=== PATIENT | male | born 1945 | race Caucasian/White ===

== ENCOUNTER → 2020-04-23 12:43 | Outpatient (BNVA) | payer MEDICARE, MEDICAID, SELFPAY | PROVIDERS: PCP Hospitalist; Visit Provider Urology | DX: N48.89 Other specified disorders of penis (principal) | CPT/HCPCS: 99202 ==

== ENCOUNTER 2020-05-04 06:00 | Day surgery (SDC) | payer MEDICARE, MEDICAID, SELFPAY ==
--- NOTE | 2020-05-03 11:51 | P.CONAN_ITS ---
Documented by User: Teresa Ascencio 05/03/20 11:59 HPI - Anesthesia Eval Consult details Narrative: 74yo M for Excision Penile Mass Eliquis for h/o PE 10/2019 C admit with pna/sepsis. [facility] Past Medical History Medical History COPD (chronic obstructive pulmonary disease) Dementia in other diseases classified elsewhere with behavioral disturbance Diabetes Dysphagia Flaccid neuropathic bladder, not elsewhere classified GERD (gastroesophageal reflux disease) History of pulmonary embolism Neuromuscular dysfunction of bladder Obstruction of bile duct Penile mass PVD (peripheral vascular disease) Retention of urine Social History Social History Smoking Status: Never smoker Have you been hit, kicked, punched, or otherwise hurt by someone within the past year? If so, by whom?: No Advance Directives: No Advance Directives Information Provided: No Meds Allergies Allergy/AdvReac Type Severity Reaction Status Date / Time Penicillins [PENICILLINS] Allergy Unknown RASH Verified 05/04/20 06:44 Home Medications Medication Instructions Recorded Confirmed Type acetaminophen 325 mg capsule 325 mg PO QID PRN 04/23/20 04/23/20 History apixaban 5 mg tablet 5 mg PO BID 04/23/20 04/23/20 History insulin lispro 100 unit/mL 5 unit SUBCUT TID 04/23/20 04/23/20 History subcutaneous pen metformin 500 mg tablet 500 mg PO DAILY 04/23/20 04/23/20 History mirtazapine 15 mg tablet 15 mg PO DAILY 04/23/20 04/23/20 History Vitamin C 05/04/20 History metoprolol succinate 50 mg PO 05/04/20 History olanzapine 5 mg PO 05/04/20 History Exam Exam Date and Time: May 03, 2020 1151 Pertinent Lab Results Pertinent Lab Results: Laboratory Tests 10/21/19 10/21/19 05:50 05:50 WBC 11.0 H Hgb 10.8 L Hct 34.5 L Plt Count 302 Sodium 141 Potassium 4.3 Chloride 109 H BUN 17 H Creatinine 1.11 Assessment and Plan Assessment Anesthesia Assessment: Chart Reviewed Documented by User: Liana Simon 05/04/20 07:24 [facility] Past Medical History Medical History COPD (chronic obstructive pulmonary disease) Dementia in other diseases classified elsewhere with behavioral disturbance Diabetes Dysphagia Flaccid neuropathic bladder, not elsewhere classified GERD (gastroesophageal reflux disease) History of pulmonary embolism Neuromuscular dysfunction of bladder Obstruction of bile duct Penile mass PVD (peripheral vascular disease) Retention of urine Social History Social History Smoking Status: Never smoker Have you been hit, kicked, punched, or otherwise hurt by someone within the past year? If so, by whom?: No Advance Directives: No Advance Directives Information Provided: No Meds Allergies Allergy/AdvReac Type Severity Reaction Status Date / Time Penicillins [PENICILLINS] Allergy Unknown RASH Verified 05/04/20 06:44 Home Medications Medication Instructions Recorded Confirmed Type acetaminophen 325 mg capsule 325 mg PO QID PRN 04/23/20 04/23/20 History apixaban 5 mg tablet 5 mg PO BID 04/23/20 04/23/20 History insulin lispro 100 unit/mL 5 unit SUBCUT TID 04/23/20 04/23/20 History subcutaneous pen metformin 500 mg tablet 500 mg PO DAILY 04/23/20 04/23/20 History mirtazapine 15 mg tablet 15 mg PO DAILY 04/23/20 04/23/20 History Vitamin C 05/04/20 History metoprolol succinate 50 mg PO 05/04/20 History olanzapine 5 mg PO 05/04/20 History Exam Airway Mallampati Class: II TM Dist: >3cm Neck ROM: Limited Assessment and Plan Assessment Anesthesia Assessment: Anesthesia Plan Discussed and Chart Reviewed Final Anesthetic Review NPO: Yes ASA Class: III Final Preanesthetic Review: No Changes in Pt Med Stat, Meds/Allgs Chart Reviewed, Consent Obtained/Reviewed and Anes Risks/Benef Reviewed Patient Risk: Intermediate Procedure Risk: Low Assessment/Block/Sedation in SS: Assess/Block/Sedation-SS Anesthetic Plan Anesthetic Plan: MAC: Disposition: Standard PACU
[2020-05-03 16:02] VITALS: BMI 22.1
[2020-05-04 06:49] VITALS: BP 172/66; PULSE 60; RESP 16; TEMP 36.4; O2SAT 100
[2020-05-04 06:52] LABS: Glucose, Whole Blood 166 mg/dL (60-115)
[2020-05-04] MEDS: Lactated Ringers 1,000 ML 50 ML IVCONT (07:00)
[2020-05-04] MEDS: levoFLOXacin/D5W 500 MG/100 ML PIGGYBACK 100 MG IV (07:00)
--- NOTE | 2020-05-04 07:09 | MHC.SHP ---
Pre-Procedural Eval Section A The patient is an INPATIENT: No The History & Physical has been completed within 30 days and I have reviewed it.: Yes Section B Chief Complaint: disorder of penis Allergies: Allergies Allergy/AdvReac Type Severity Reaction Status Date / Time Penicillins [PENICILLINS] Allergy Unknown RASH Verified 05/04/20 06:44 Plan Diagnosis/Plan: Unchanged I have reviewed the history and physical and performed a pertinent physical examination on my patient. No changes have occurred unless specified.
--- NOTE | 2020-05-04 08:03 | PM.OP ---
Brief Operative Note Date of Service: 05/04/20 Pre-op diagnosis: penile mass Post-op diagnosis: other (penile sctotal mass) Procedure: excision of mass and cysto Surgeon: Krzysztof Cornell III, MD Anesthesia: MAC and local Estimated blood loss (mL): 0 Pathology: other (mass sent) Condition: stable Disposition: same day
[2020-05-04 08:12] VITALS: BP 112/48; PULSE 58; RESP 16; TEMP 36.6; O2SAT 100
[2020-05-04 08:27] VITALS: BP 140/53; PULSE 55; RESP 18; O2SAT 100
--- NOTE | 2020-05-04 09:04 | HO.POSTANES ---
Post Anesthesia Evaluation Post Anesthesia Evaluation Vital Signs: Vital Signs Temp Pulse Resp BP Pulse Ox 05/04/20 08:27 97.8 F 55 18 140/53 H 100 05/04/20 08:12 97.8 F 58 16 112/48 L 100 05/04/20 06:49 97.6 F 60 16 172/66 H 100 Anesthesia: Monitored Mental Status: Awake Pain Control: Satisfactory Nausea/Vomiting: None Hydration: Adequate Anesthesia-Related Issues: No Anes. Related Issues
--- NOTE | 2020-08-04 12:47 | OP_ITS ---
SURGEON: Krzysztof Cornell III, MD PREOPERATIVE DIAGNOSIS: Penile mass. POSTOPERATIVE DIAGNOSIS: PROCEDURE PERFORMED: ESTIMATED BLOOD LOSS: None. COMPLICATIONS: None. ANESTHESIA: ASSISTANTS: SPECIMENS: Sent to pathology for both frozen and permanent. POSTOPERATIVE DIAGNOSES: Penile scrotal mass, obliterated urethra. PROCEDURE: Cystoscopy and excision of mass . ANESTHETIC: MAC local. COMPLICATIONS: None. PROCEDURE IN DETAIL: The patient after adequate anesthesia was obtained, a time-out done demonstrating correct patient, correct procedure. Following this, the patient underwent attempt to place a Roach catheter, which was unsuccessful. Cystoscopy demonstrated the patient had obliterated urethra to the mass. The erythematous bleeding portion that was exophytic on the skin, was circumscribed with a knife and subsequently using sharp dissection was removed. The patient still has mass underneath and going deeper into his pelvis and posterior urethra. A silk tag was left in this area. This would represent the top of the remaining tumor/mass. The patient had his incision closed with absorbable suture. He tolerated procedure well with no complications. MD BOYD Naik III/[facility] / [id number]
== END 2020-05-04 09:05 | disposition other institution (70) ==
PROVIDERS: PCP Hospitalist; Visit Provider Urology
PROC: (CPT 11423; principal; 2020-05-04 07:30)
DX: N48.89 Other specified disorders of penis (principal); N36.8 Other specified disorders of urethra; N31.2 Flaccid neuropathic bladder, not elsewhere classified; R33.9 Retention of urine, unspecified; J44.9 Chronic obstructive pulmonary disease, unspecified; F03.91 Unspecified dementia, unspecified severity, with behavioral disturbance; I70.402 Unspecified atherosclerosis of autologous vein bypass graft(s) of the extremities, left leg; E08.51 Diabetes mellitus due to underlying condition with diabetic peripheral angiopathy without gangrene; Z79.4 Long term (current) use of insulin; Z79.899 Other long term (current) drug therapy; Z88.0 Allergy status to penicillin; Z66 Do not resuscitate; Z89.512 Acquired absence of left leg below knee; Z91.81 History of falling
CPT/HCPCS: 11423; 82947; 88304; 88331; J1956; J2405; J3010

== ENCOUNTER → 2020-05-11 12:59 | Outpatient (BNVA) | payer MEDICARE, MEDICAID, SELFPAY | PROVIDERS: PCP Hospitalist; Visit Provider Urology | DX: N48.89 Other specified disorders of penis (principal) | CPT/HCPCS: 99212 ==

== ENCOUNTER 2020-05-20 08:44 | Outpatient (REF) | payer MEDICARE, MEDICAID, SELFPAY ==
--- NOTE | ~2020-05-20 | CT_ITS ---
EXAMINATION: CT PELVIS WITH CONTRAST CLINICAL INFORMATION: Disorders of penis. COMPARISON: None TECHNIQUE: Helical scanning was performed with submillimeter collimation through the pelvis with the use of oral contrast and during bolus intravenous injection of 100 mL of Omnipaque 350 intravenous contrast. Sagittal and coronal multiplanar 2-D reconstructions were obtained. This CT examination was performed using dose optimization techniques as appropriate, variously including the following: *Automated exposure control *Adjustment of mA and/or kV according to patient size (this includes techniques or standardized protocols for targeted exams where dose is matched to indication/reason for exam; i.e. extremities or head) *Use of iterative reconstruction technique DLP: 345 mGy-cm FINDINGS: PELVIS: There is a suprapubic catheter with a diffusely thickened bladder wall. The prostate gland is moderately enlarged and appears heterogenous. A large amount of stool is seen in the rectum. No pelvic mass or abnormal lymph nodes seen. There is hyperdensity seen in the right corpus cavernosa. No soft tissue mass seen surrounding the penis or the perineum. OSSEOUS STRUCTURES: No lytic or sclerotic process seen. There is moderate periarticular spurring right hip joint. CT/CT pelvis w con IMPRESSION: Hyperdensity in the right corpus cavernosa of unknown etiology. This can be seen with diabetes or trauma. Correlate clinically. Moderate constipation. Diffuse bladder wall thickening with a Roach's catheter within.
[2020-05-20] MEDS: iohexoL 350 MG/ML 100 ML INFUS..BTL 85 ML IV (10:10)
== END 2020-05-20 08:45 | disposition home or self-care (01) ==
LOC: HO.CT 08:44
PROVIDERS: PCP Hospitalist; Visit Provider Urology
DX: N48.89 Other specified disorders of penis (principal)
CPT/HCPCS: 72193; Q9967

== ENCOUNTER → 2020-07-01 10:11 | Outpatient (BNVA) | payer MEDICARE, MEDICAID, SELFPAY | PROVIDERS: Visit Provider Urology | DX: N48.89 Other specified disorders of penis (principal); R33.9 Retention of urine, unspecified | CPT/HCPCS: 99212 ==

== ENCOUNTER → 2021-01-04 10:12 | Outpatient (BNVA) | payer MEDICARE, MEDICAID, SELFPAY | PROVIDERS: Visit Provider Urology | DX: N48.89 Other specified disorders of penis (principal); N49.2 Inflammatory disorders of scrotum; N31.9 Neuromuscular dysfunction of bladder, unspecified | CPT/HCPCS: 99212 ==

== ENCOUNTER → 2021-07-06 10:31 | Outpatient (BNVA) | payer MEDICARE, MEDICAID, SELFPAY | PROVIDERS: PCP Hospitalist; Visit Provider Urology | DX: N31.9 Neuromuscular dysfunction of bladder, unspecified (principal); N48.89 Other specified disorders of penis | CPT/HCPCS: 99212 ==

== ENCOUNTER → 2022-05-02 09:41 | Outpatient (BNVA) | payer MEDICARE, MEDICAID, SELFPAY | PROVIDERS: PCP Hospitalist; Visit Provider Nurse Practitioner Family | DX: N31.9 Neuromuscular dysfunction of bladder, unspecified (principal) | CPT/HCPCS: 99212 ==

== ENCOUNTER 2022-07-19 09:53 | Outpatient (REF) | payer MEDICARE, MEDICAID, SELFPAY ==
--- NOTE | ~2022-07-19 | CT_ITS ---
EXAMINATION: CT CHEST, ABDOMEN AND PELVIS WITHOUT CONTRAST CLINICAL INFORMATION: Abnormal weight loss. COMPARISON: CT pelvis 05/20/2020 TECHNIQUE: Multidetector volumetric CT imaging of the chest, abdomen, and pelvis was performed without contrast. Axial MIP volume rendering provided. Sagittal and coronal reformatted images were obtained. DLP: 139 mGy-cm. FINDINGS: CHEST: LUNGS: Moderate centrilobular emphysema with upper lobe predominance. There is abnormal parenchymal consolidation at the apex of the right upper lobe with an area of calcification measuring 4.8 x 3.0 x 4.0 cm. Along the posterior aspect of the cavitation there is a 2.3 x 1.6 x 1.7 cm rounded low-attenuation nodule. MEDIASTINUM: No mediastinal adenopathy. No aortic aneurysm. No pericardial effusion. CORONARY ARTERY CALCIUM: Present. LAD, LCx, RCA distribution calcium. PLEURA: There is pleural thickening along the right upper lobe cavitation. AXILLA: No lymphoma. ABDOMEN AND PELVIS: LIVER, GALLBLADDER, AND BILIARY TREE: Calcified granuloma in segment IVb. No biliary ductal dilatation or discrete liver mass. Cholecystectomy. PANCREAS: There is a nonspecific nodule along the anterior aspect of the pancreatic head measuring 1.6 x 1.3 x 1.2 cm. There is no pancreatic ductal dilatation SPLEEN: Normal. ADRENAL GLANDS: No adrenal mass. KIDNEYS AND URETERS: The upper pole left kidney is atrophic. There is no discrete renal mass. No nephrolithiasis or hydronephrosis. BLADDER: Suprapubic catheter. GASTROINTESTINAL TRACT: The small bowel is normal in caliber. The appendix is normal. There is a large amount stool in the rectal vault with mild surrounding inflammation which may represent sterocoral colitis. ABDOMINAL WALL: Stable metallic foreign density in the subcutaneous tissue of the left lower quadrant. No significant hernia. LYMPH NODES: No lymphadenopathy. VASCULAR: Significant aortoiliac atherosclerotic disease. No aortic aneurysm. Bilateral external iliac artery stents. Surgical changes bilateral groins. PELVIC VISCERA: Enlarged prostate. OSSEOUS STRUCTURES: Degenerative changes in the spine. CT/CT abdomen pelvis wo IV con IMPRESSION: 4.8 x 3.0 x 4.0 cm cavity in the posterior right upper lobe, within which is a 2.3 x 1.6 x 1.7 cm rounded low-attenuation nodule. 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 Nonspecific nodule along the anterior aspect of the pancreatic head measuring 1.6 x 1.3 x 1.2 cm. Further evaluation with pancreatic protocol CT abdomen without and with contrast is recommended. Large amount of stool in the rectal vault with mild surrounding inflammation which may represent stercoral colitis. Fleischner guidelines were followed.
[2022-07-19 13:32] LABS: Creatinine POC 0.7 mg/dL (0.5-1.4); GFR POC > 60
== END 2022-07-19 09:54 | disposition home or self-care (01) ==
LOC: HO.CT 09:53
PROVIDERS: PCP Hospitalist; Visit Provider Hospitalist
DX: R10.9 Unspecified abdominal pain (principal); R63.4 Abnormal weight loss; R53.83 Other fatigue
CPT/HCPCS: 71250; 74176; 82565

== ENCOUNTER 2022-08-17 10:17 | Outpatient (REF) | payer MEDICARE, MEDICAID, SELFPAY ==
[2022-08-17 11:15] LABS: MANUAL DIFF FLAG NO
[2022-08-17 12:36] LABS: Basophils Absolute Auto 0.1 X10*3/uL (0.0-0.2); Basophils Percent Auto 0.7 % (0-2); Eosinophils Absolute Auto 0.7 X10*3/uL (0.0-0.4); Eosinophils Percent Auto 4.7 % (0-4); Hematocrit 33.1 % (42.0-52.0); Hemoglobin 9.5 g/dl (14.0-18.0); Imm Gran Abs Auto 0.32 X10*3/uL (0.00-0.03); Imm Gran Pct Auto 2.2 % (0.0-0.4); Lymphocytes Absolute Auto 1.7 X10*3/uL (1.2-4.9); Lymphocytes Percent Auto 11.5 % (20-40); Mean Corpuscular HGB Conc 28.7 g/dl (31.0-36.0); Mean Corpuscular Hemoglobin 23.8 pg (27.0-33.0); Mean Platelet Volume 10.8 fL (9.4-12.4); Monocytes Absolute Auto 1.3 X10*3/uL (0.1-1.2); Neutrophils Absolute Auto 10.4 x10*3/uL (2.0-8.3); Neutrophils Percent Auto 71.9 % (45-73); Platelet Count 382 X10*3/uL (160-400); Red Blood Count 3.99 X10*6/uL (4.60-5.80); Red Cell Distribution Width 17.7 % (11.0-16.0); White Blood Count 14.5 X10*3/uL (4.8-10.8)
[2022-08-19 23:48] LABS: TS Negative Control Passed; TS Panel A 0; TS Panel B 1; TS Positive Control Passed; TSpotTB Negative (Negative)
[2022-08-21 14:23] LABS: Immunoglobulin G Subclass 1 976 mg/dL (382-929); Immunoglobulin G Subclass 2 288 mg/dL (241-700); Immunoglobulin G Subclass 3 70 mg/dL (22-178); Immunoglobulin G Subclass 4 157.3 mg/dL (4-86); Immunoglobulin G Total 1437 mg/dL (600-1540)
[2022-08-23 15:03] LABS: Aspergillus Antigen Not Detected (Not Detected); Index Value 0.21 (<0.50)
== END 2022-08-17 10:18 | disposition home or self-care (01) ==
LOC: HO.LAB 10:17
PROVIDERS: PCP Hospitalist; Visit Provider Hospitalist
DX: J98.4 Other disorders of lung (principal); R63.4 Abnormal weight loss
CPT/HCPCS: 36415; 82784; 85025; 86481; 87305; 99202

== ENCOUNTER 2022-08-31 07:42 | Outpatient (REF) | payer MEDICARE, MEDICAID, SELFPAY ==
--- NOTE | ~2022-08-31 | CT_ITS ---
EXAMINATION: CT ABDOMEN WITHOUT AND WITH CONTRAST CLINICAL INFORMATION: Malignant neoplasm of thyroid pancreas. COMPARISON: CT abdomen and pelvis 07/19/2022. TECHNIQUE: Contiguous axial thin section helical images of the abdomen were performed before and after the administration of oral contrast and 85 mL of Omnipaque 350 intravenous contrast. The data set was reformatted in the coronal and sagittal planes and reviewed on an independent workstation. This CT examination was performed using dose optimization techniques as appropriate, variously including the following: *Automated exposure control *Adjustment of mA and/or kV according to patient size (this includes techniques or standardized protocols for targeted exams where dose is matched to indication/reason for exam; i.e. extremities or head) *Use of iterative reconstruction technique DLP: 369 mGy-cm. FINDINGS: LUNG BASES: There are atelectatic changes left lower lobe lateral basal segment. LIVER, GALLBLADDER, AND BILIARY TREE: The liver is homogeneous in density, normal contour and position. There is a 4 mm calcification in segment 4A. No additional lesions seen. No intrahepatic ductal dilatation. PANCREAS: The pancreas is normal size and density. In the body of the pancreas, there is an exophytic lesion measuring 1.6 x 1.4 cm on axial slice 19/6. On precontrast measures 17 Hounsfield units. On arterial phase it measures 30 Hounsfield units and on venous phase it measures 70 Hounsfield units. On the venous phase, the lesion appears to have a intraparenchymal component on axial slice 56/8 measuring 0.9 x 0.8 cm. It measures 70 Hounsfield units. No additional lesions seen. SPLEEN: The spleen is unremarkable. ADRENAL GLANDS AND KIDNEYS: The adrenal glands are symmetrical and normal. The left kidney is smaller compared to right side. No radiopaque renal calculi or enhancing renal mass seen. There is bilateral perinephric stranding. No hydronephrosis. BOWEL LOOPS: There is scattered stool and gas seen throughout the colon without distention. The small bowel loops are normal caliber. Appendix is not in the [id number]. LYMPH NODES: Unremarkable. VASCULAR: Mild atherosclerosis of abdominal aorta is noted. BONES: No aggressive lytic or sclerotic process seen. Mild region disc changes L4-L5 disc level with mild ventral spondylosis present. CT/CT abdomen wo/w IV con IMPRESSION: 1. Exophytic enhancing arterial and venous lesion in the body of the pancreas with intraparenchymal component. Findings suspicious for primary pancreatic neoplasm 2. No additional lesions seen. No abnormal retroperitoneal or mesenteric lymph nodes. 3. Small left kidney compared to right side. 4. Mild constipation. Fleischner guidelines were followed.
[2022-08-31] MEDS: iohexoL 350 MG/ML 100 ML INFUS..BTL IV (08:42)
== END 2022-08-31 07:43 | disposition home or self-care (01) ==
LOC: HO.CT 07:42
PROVIDERS: PCP Hospitalist; Visit Provider Hospitalist
DX: C25.0 Malignant neoplasm of head of pancreas (principal)
CPT/HCPCS: 74170; Q9967

== ENCOUNTER 2022-09-07 07:26 | Day surgery (SDC) | payer MEDICARE, MEDICAID, SELFPAY ==
--- NOTE | 2022-09-06 14:21 | HO.ANESPROP2 ---
Documented by User: Teresa Ascencio NP 09/06/22 14:25 HPI - Anesthesia Eval Consult details Narrative: 77yo M for Bronchoscopy Fiberoptic SNF resident/DNR/Dementia (sister signs) Medically optimized Eliquis for PVD/Hx PE PMFSH Active Problems Active Problems: All Active Problems (Updated 09/06/22 @ 11:47 by Meg Sorenson, RN) Neurogenic urinary bladder disorder (Acute) Recurrent scrotal infection (Acute) Weight loss (Acute) Cavitary lesion of lung (Acute) Penile mass (Acute) Past Medical History Medical History (Updated 09/06/22 @ 11:47 by Meg Sorenson, RN) Cavitary lesion of lung COPD (chronic obstructive pulmonary disease) Dementia in other diseases classified elsewhere with behavioral disturbance Diabetes Dysphagia Flaccid neuropathic bladder, not elsewhere classified Generalized anxiety disorder GERD (gastroesophageal reflux disease) History of pulmonary embolism HTN (hypertension) Neuromuscular dysfunction of bladder Obstruction of bile duct On anticoagulant therapy Penile mass Presence of suprapubic catheter Pulmonary aspergillosis PVD (peripheral vascular disease) Retention of urine Weight loss Surgical History Surgical History (Updated 09/06/22 @ 11:47 by Meg Sorenson RN) History of amputation of left foot History of below knee amputation History of cystoscopy Status post amputation of toe of right foot Social History Social History (Updated 08/17/22 @ 10:38 by PRADEEP Kiran) Patient Tobacco Use Status: Current everyday Tobacco user Tobacco use type: Cigarette Cigarettes Per Day: 5 Years Smoked: 50 Years Use of substances other than those prescribed or required for medical reasons: No Are you DNR?: No Advance Directives: No Advance Directives Information Provided: Yes Meds Allergies Allergy/AdvReac Type Severity Reaction Status Date / Time Penicillins [PENICILLINS] Allergy Unknown RASH Verified 08/17/22 10:32 Home Medications Medication Instructions Recorded Confirmed Last Taken Type acetaminophen 325 mg capsule 325 mg PO QID PRN Pain 04/23/20 09/01/22 Unknown History apixaban 5 mg tablet (Eliquis) 5 mg PO BID 04/23/20 09/01/22 05/03/20 History mirtazapine 15 mg tablet 15 mg PO DAILY 04/23/20 09/01/22 Unknown History insulin aspart U-100 100 unit/mL subcut 07/06/21 05/02/22 Unknown History (3 mL) subcutaneous pen (Novolog FlexPen U-100 Insulin aspart) metformin 1,000 mg tablet 1,000 mg PO BID 07/06/21 09/01/22 Unknown History metoprolol succinate 50 mg 50 mg PO DAILY 07/06/21 09/01/22 Unknown History tablet,extended release 24 hr olanzapine 5 mg tablet 5 mg PO BEDTIME 07/06/21 09/01/22 Unknown History pen needle,diabetic dual safty 30 #100 ea 07/06/21 Unknown History gauge x 3/16 (BD AutoShield Duo Pen Needle) tramadol 50 mg tablet 50 mg PO TID PRN Pain 07/06/21 09/01/22 Unknown History gemfibrozil 600 mg tablet 600 mg PO BID 05/02/22 09/01/22 Unknown History bisacodyl 10 mg rectal suppository [address] DAILY PRN Constipation 08/17/22 09/01/22 Unknown History esomeprazole magnesium 40 mg 40 mg PO DAILY 08/17/22 09/01/22 Unknown History capsule,delayed release naloxone 4 mg/actuation nasal 4 mg intranasal Q3M PRN Drug 08/17/22 09/01/22 Unknown History spray (Narcan) Intoxication Symptoms nicotine 7 mg/24 hr daily 1 patch transdermal Q24H 08/17/22 09/01/22 Unknown History transdermal patch sennosides 8.6 mg tablet (senna) 8.6 mg PO DAILY 08/17/22 09/01/22 Unknown History sodium phosphates 19 gram-[address] DAILY 08/17/22 09/01/22 Unknown History gram/118 mL enema (Fleet Enema) ascorbic acid (vitamin C) 500 mg 500 mg PO BID 09/06/22 09/06/22 Unknown History tablet (Vitamin C) Exam Exam Date and Time: September 06, 2022 1421 Pertinent Lab Results Pertinent Lab Results: Laboratory Tests 08/17/22 11:14 WBC 14.5 H Hgb 9.5 L Hct 33.1 L Plt Count 382 Assessment and Plan Assessment Anesthesia Assessment: Chart Reviewed Documented by User: Aryan Reis MD 09/07/22 09:27 [facility] Past Medical History Medical History (Updated 09/06/22 @ 11:47 by Meg Sorenson, RN) Cavitary lesion of lung COPD (chronic obstructive pulmonary disease) Dementia in other diseases classified elsewhere with behavioral disturbance Diabetes Dysphagia Flaccid neuropathic bladder, not elsewhere classified Generalized anxiety disorder GERD (gastroesophageal reflux disease) History of pulmonary embolism HTN (hypertension) Neuromuscular dysfunction of bladder Obstruction of bile duct On anticoagulant therapy Penile mass Presence of suprapubic catheter Pulmonary aspergillosis PVD (peripheral vascular disease) Retention of urine Weight loss Functional capacity: wheelchair bound Narrative: s/p left BKA Family History Family history of problems with anesthesia: No Surgical History Surgical History (Updated 09/06/22 @ 11:47 by Meg Sorenson, RN) History of amputation of left foot History of below knee amputation History of cystoscopy Status post amputation of toe of right foot History of Problems with Anesthesia: No Social History Social History (Updated 08/17/22 @ 10:38 by PRADEEP Kiran) Patient Tobacco Use Status: Current everyday Tobacco user Tobacco use type: Cigarette Cigarettes Per Day: 5 Years Smoked: 50 Years Use of substances other than those prescribed or required for medical reasons: No Are you DNR?: No Advance Directives: No Advance Directives Information Provided: Yes Meds Allergies Allergy/AdvReac Type Severity Reaction Status Date / Time Penicillins [PENICILLINS] Allergy Unknown RASH Verified 08/17/22 10:32 Home Medications Medication Instructions Recorded Confirmed Last Taken Type acetaminophen 325 mg capsule 325 mg PO QID PRN Pain 04/23/20 09/01/22 Unknown History apixaban 5 mg tablet (Eliquis) 5 mg PO BID 04/23/20 09/01/22 05/03/20 History mirtazapine 15 mg tablet 15 mg PO DAILY 04/23/20 09/01/22 Unknown History insulin aspart U-100 100 unit/mL subcut 07/06/21 05/02/22 Unknown History (3 mL) subcutaneous pen (Novolog FlexPen U-100 Insulin aspart) metformin 1,000 mg tablet 1,000 mg PO BID 07/06/21 09/01/22 Unknown History metoprolol succinate 50 mg 50 mg PO DAILY 07/06/21 09/01/22 Unknown History tablet,extended release 24 hr olanzapine 5 mg tablet 5 mg PO BEDTIME 07/06/21 09/01/22 Unknown History pen needle,diabetic dual safty 30 #100 ea 07/06/21 Unknown History gauge x 3/16 (BD AutoShield Duo Pen Needle) tramadol 50 mg tablet 50 mg PO TID PRN Pain 07/06/21 09/01/22 Unknown History gemfibrozil 600 mg tablet 600 mg PO BID 05/02/22 09/01/22 Unknown History bisacodyl 10 mg rectal suppository [address] DAILY PRN Constipation 08/17/22 09/01/22 Unknown History esomeprazole magnesium 40 mg 40 mg PO DAILY 08/17/22 09/01/22 Unknown History capsule,delayed release naloxone 4 mg/actuation nasal 4 mg intranasal Q3M PRN Drug 08/17/22 09/01/22 Unknown History spray (Narcan) Intoxication Symptoms nicotine 7 mg/24 hr daily 1 patch transdermal Q24H 08/17/22 09/01/22 Unknown History transdermal patch sennosides 8.6 mg tablet (senna) 8.6 mg PO DAILY 08/17/22 09/01/22 Unknown History sodium phosphates 19 gram-[address] DAILY 08/17/22 09/01/22 Unknown History gram/118 mL enema (Fleet Enema) ascorbic acid (vitamin C) 500 mg 500 mg PO BID 09/06/22 09/06/22 Unknown History tablet (Vitamin C) Exam Airway Mallampati Class: III TM Dist: >3cm Neck ROM: Full Denture: Upper Loose/Missing/Broken Teeth: Yes, Upper and Lower Heart: ok Lungs: ok. Rm air Sat 95%. Assessment and Plan Assessment Anesthesia Assessment: Anesthesia Plan Discussed Final Anesthetic Review Family History of Problems with Anesthesia: No History of Problems with Anesthesia: No NPO: Yes ASA Class: IV Final Preanesthetic Review: No Changes in Pt Med Stat, Meds/Allgs Chart Reviewed, Consent Obtained/Reviewed, Anes Risks/Benef Reviewed and DNR Form (If Appl.) Patient Risk: High Procedure Risk: High Anesthetic Plan Anesthetic Plan: GA and Agree w/ Assess. and Plan Disposition: Standard PACU
[2022-09-07] VITALS (14 sets, daily range): BP systolic 96–139; BP diastolic 44–70; PULSE 72–91; RESP 16–22; TEMP 36.3–36.9; O2SAT 95–100; BMI 17.6
--- NOTE | ~2022-09-07 | XR_ITS ---
EXAMINATION: XR CHEST CLINICAL INFORMATION: Status post bronchoscopy COMPARISON: Chest CT 07/19/2022 and chest x-ray 10/21/2019 TECHNIQUE: Frontal view of the chest was obtained. FINDINGS: Cardiac silhouette is normal in size. The lungs are mildly hypoinflated. A well-defined opacity projecting over the right upper lung likely corresponds with known solid and cystic abnormality. There is no pneumothorax identified. No pleural effusion. Severe degenerative changes of the left shoulder. XR/XR chest 1V IMPRESSION: 1. No pneumothorax status post bronchoscopy. 2. Right upper lobe opacity likely corresponds with known solid and cystic abnormality.
[2022-09-07 08:49] LABS: Glucose, Whole Blood 75 mg/dL (60-115)
--- NOTE | 2022-09-07 09:21 | MHC.SHP ---
Pre-Procedural Eval Section A Date of Service: 09/07/22 Changes since office visit: No Cold of Flu in the past 2 weeks, No New Medical Problems, No Changes in Medication and No Patient answered all questions The History & Physical has been completed within 30 days and I have reviewed it.: Yes Section B Chief Complaint: Other disorders of lung Allergies: Allergies Allergy/AdvReac Type Severity Reaction Status Date / Time Penicillins [PENICILLINS] Allergy Unknown RASH Verified 08/17/22 10:32 Plan I have reviewed the history and physical and performed a pertinent physical examination on my patient. No changes have occurred unless specified. Time Spent With Patient Time: Total time managing care of this patient today ____ minutes.
[2022-09-07] MEDS: Lactated Ringers 1,000 ML 100 ML IVCONT (09:35)
[2022-09-07] MEDS: Dextrose 50 % 25 GM/50 ML SYRINGE IVPUSH (10:30)
[2022-09-07 13:18] LABS: Glucose, Whole Blood 48 mg/dL (60-115)
[2022-09-07 13:18] LABS: Glucose, Whole Blood 186 mg/dL (60-115)
[2022-09-07 13:18] LABS: Glucose, Whole Blood 169 mg/dL (60-115)
--- NOTE | 2022-09-07 13:45 | PC.NURSE ---
thorough Report called to research group director at [facility], questions asked and answered, as per Md. Stemp discussed in addition need for blood sugar check upon arrival or shortly after for good measure.
--- NOTE | 2022-09-07 16:24 | PM.OP ---
Brief Operative Note Date of Service: 09/07/22 Pre-op diagnosis: cavitary lung lesion Post-op diagnosis: same Procedure: bronchoscopy with washings, brushings and transbronchial RUL biopsies Implants: Surgeon: Thom Burnham MD Anesthesia: GLMA Was an Air Conditioner Installer Helper used for this Procedure?: No Estimated blood loss (mL): 0 Condition: stable Disposition: same day
--- NOTE | 2022-09-08 01:10 | OP_ITS ---
DATE OF SERVICE: 09/07/2022 SURGEON: Thom Burnham MD INDICATIONS: The consent was obtained from the patient's proxy, a sister. PREOPERATIVE DIAGNOSIS: Cavitary lung lesion. POSTOPERATIVE DIAGNOSIS: Cavitary lung lesion. PROCEDURE PERFORMED: Bronchoscopy with washings, brushings, and transbronchial forceps biopsies. ESTIMATED BLOOD LOSS: COMPLICATIONS: ANESTHESIA: LMA. ASSISTANTS: SPECIMENS: DESCRIPTION OF PROCEDURE: After the patient was adequately sedated, flexible digital bronchoscope was inserted via LMA to the level of vocal cord in the larynx. The larynx and vocal cords looked normal. After instilling lidocaine, the bronchoscope was then passed to vocal cord to the level of trachea. There was significant amount of purulent secretions noted in the mid to distal trachea. The actual tracheal mucosa appeared normal. The bronchoscope was then inserted through the entire tracheobronchial tree that was examined up to the subsegmental level. Patient did have moderate amount of purulent secretions probably in the central airways and also in the right upper lobe, less involved in the other airways. No endobronchial lesions or masses noted throughout the airways. The bronchoscope was then navigated to the right upper lobe where both cytologic and microscopic brushes introduced into the right upper lobe and sent to the appropriate locations. Then using forceps, a transbronchial biopsies were collected from the right upper lobe, apical segment. Specimens were sent in formalin. Bronchial washings were also collected. Patient did not have any significant bleeding at the completion of the biopsies, which are reassuring. No need for epinephrine. Good hemostasis spontaneously. The bronchoscope was then removed. The total endoscopic time was approximately 15 minutes. Patient tolerated the procedure well. Vital signs are stable. Chest x-ray postop without evidence of any complications. INTERPRETATIONS: 1. Successful transbronchial biopsies of the right upper lobe. 2. Brushings x2 both for cytology and microbiology. 3. Bilateral lung washings for cytology and microbiology. Thom Burnham MD MR/MODL / [id number]
== END 2022-09-07 13:45 | disposition home or self-care (01) ==
PROVIDERS: PCP Hospitalist; Visit Provider Hospitalist
PROC: 0BJ08ZZ Inspection of Tracheobronchial Tree, Via Natural or Artificial Opening Endoscopic (ICD-10-PCS; CPT 31622; principal; 2022-09-07 09:10)
DX: J98.4 Other disorders of lung (principal); R63.4 Abnormal weight loss; Z68.22 Body mass index [BMI] 22.0-22.9, adult; E11.9 Type 2 diabetes mellitus without complications; K21.9 Gastro-esophageal reflux disease without esophagitis; N31.9 Neuromuscular dysfunction of bladder, unspecified; I10 Essential (primary) hypertension; I73.9 Peripheral vascular disease, unspecified; Z86.711 Personal history of pulmonary embolism; Z79.01 Long term (current) use of anticoagulants; Z79.4 Long term (current) use of insulin; Z79.899 Other long term (current) drug therapy; Z88.0 Allergy status to penicillin; Z89.512 Acquired absence of left leg below knee; Z66 Do not resuscitate; F17.210 Nicotine dependence, cigarettes, uncomplicated
CPT/HCPCS: 31625; 31623; 71045; 82947; 87070; 87102; 87107; 87116; 87205; 87206; 88112; 88305; J3010